=== PATIENT | male | born 1955 | race Caucasian/White ===

== ENCOUNTER → 2016-05-24 | Outpatient (CLI) | payer BC, OTHER ==
[~2016-05-24] MED LIST: /GLYB5TA PO; /PANT40TA; /TAMS4CA; /WARF5TA PO; BENI20TA11; CELE20TA; CIPR500T19; CIPR500T4; COLA100C2; COLA100C2 PO; CORE6.25 PO; DIGO0.126 PO; FLAG500T; FURO40TA2; GLUC1000; HYDR25TA6; K-TA10TA; LISI10TA4 PO; MILKSUS; MOTRIN; NORV5TAB; No Historical Meds; POTA10CA2; ROSU10TA; SLOWTAB OR; SPIR25TA2 PO; SYSTANE; TYLE500T53; VERA180T9; VERAPAMIL
[2016-05-24 19:09] LABS: ALBUMIN 3.7 GM/DL (3.2-5.2); ALBUMIN/GLOBULIN RATIO 1.19 (1.00-1.93); BILIRUBIN,TOTAL 0.3 MG/DL (0.2-1.0); CALCIUM LEVEL 8.8 MG/DL (8.8-10.2); CREATININE FOR GFR 1.59 MG/DL (0.70-1.30); GLOMERULAR FILTRATION RATE 47.2 (>49); POTASSIUM SERUM 4.4 MEQ/L (3.5-5.1); TOTAL PROTEIN 6.8 GM/DL (6.4-8.2)
== END ==
LOC: M LAB 16:55
PROVIDERS: ATTEND Family Medicine Addiction Medicine
DX: E11.65 Type 2 diabetes mellitus with hyperglycemia (principal)

== ENCOUNTER → 2016-08-28 | Outpatient (CLI) | payer BC, OTHER ==
[2016-08-28 09:36] LABS: ALBUMIN 3.7 GM/DL (3.2-5.2); ALBUMIN/GLOBULIN RATIO 1.12 (1.00-1.93); BILIRUBIN,TOTAL 0.5 MG/DL (0.2-1.0); CREATININE FOR GFR 1.57 MG/DL (0.70-1.30); GLOMERULAR FILTRATION RATE 47.7 (>49); POTASSIUM SERUM 4.8 MEQ/L (3.5-5.1)
== END ==
LOC: M LAB 07:58
PROVIDERS: ATTEND Family Medicine Addiction Medicine
DX: M54.16 Radiculopathy, lumbar region (principal)

== ENCOUNTER → 2016-11-20 | Outpatient (CLI) | payer BC, OTHER ==
[2016-11-20 11:22] LABS: ALBUMIN 3.6 GM/DL (3.2-5.2); ALBUMIN/GLOBULIN RATIO 0.97 (1.00-1.93); BILIRUBIN,TOTAL 0.6 MG/DL (0.2-1.0); CALCIUM LEVEL 8.6 MG/DL (8.8-10.2); CREATININE FOR GFR 1.68 MG/DL (0.70-1.30); GLOMERULAR FILTRATION RATE 44.2 (>49); POTASSIUM SERUM 4.5 MEQ/L (3.5-5.1); TOTAL PROTEIN 7.3 GM/DL (6.4-8.2)
== END ==
LOC: M LAB 09:01
PROVIDERS: ATTEND Family Medicine Addiction Medicine
DX: E11.65 Type 2 diabetes mellitus with hyperglycemia (principal)

== ENCOUNTER → 2017-02-20 | Outpatient (REF) | payer OTHER ==
[2017-02-20 14:07] LABS: ALBUMIN 3.8 GM/DL (3.2-5.2); ALBUMIN/GLOBULIN RATIO 1.09 (1.00-1.93); BILIRUBIN,TOTAL 0.6 MG/DL (0.2-1.0); CREATININE FOR GFR 1.62 MG/DL (0.70-1.30); POTASSIUM SERUM 4.7 MEQ/L (3.5-5.1); TOTAL PROTEIN 7.3 GM/DL (6.4-8.2)
== END ==
LOC: M LAB REF 12:31
PROVIDERS: ATTEND Family Medicine Addiction Medicine
DX: E55.9 Vitamin D deficiency, unspecified (principal); E11.65 Type 2 diabetes mellitus with hyperglycemia

== ENCOUNTER → 2017-02-20 | Outpatient (REF) | payer OTHER ==
[2017-02-20 13:43] LABS: MEAN CORPUSCULAR HEMOGLOBIN 32.1 pg (27.0-33.0); MEAN CORPUSCULAR HGB CONC 34.9 g/dl (32.0-36.5); MEAN CORPUSCULAR VOLUME 91.9 fl (80.0-96.0); RED CELL DISTRIBUTION WIDTH 11.8 % (11.5-14.5); WHITE BLOOD COUNT 8.1 10^3/uL (4.0-10.0)
[2017-02-20 13:58] LABS: ALBUMIN 3.8 GM/DL (3.2-5.2); CALCIUM LEVEL 9.1 MG/DL (8.8-10.2); CREATININE FOR GFR 1.69 MG/DL (0.70-1.30); GLOMERULAR FILTRATION RATE 43.8 (>49); MAGNESIUM LEVEL 2.1 MG/DL (1.8-2.4); PHOSPHORUS LEVEL 3.9 MG/DL (2.5-4.9); POTASSIUM SERUM 4.7 MEQ/L (3.5-5.1)
== END ==
LOC: M LAB REF 12:33
PROVIDERS: ATTEND Physician Assistant
DX: I48.0 Paroxysmal atrial fibrillation (principal); I50.42 Chronic combined systolic (congestive) and diastolic (congestive) heart failure

== ENCOUNTER 2017-04-03 09:28 | Emergency (ER) | payer BC, OTHER ==
[~2017-04-03] VITALS: Ht 182.9 cm; Wt 113.6 kg
[2017-04-03] MEDS ORDERED: CLOP75TA2 PO (09:44)
[2017-04-03] MEDS ORDERED: INSUH10VL SC (09:44)
[2017-04-03] MEDS ORDERED: MULTCAP12 PO (09:44)
[2017-04-03] MEDS ORDERED: INSULANT SC (09:44)
[2017-04-03] MEDS ORDERED: ATOR80TA59 PO (09:44)
[2017-04-03] MEDS ORDERED: FURO40TA2 PO (09:44)
[2017-04-03] MEDS ORDERED: HYDR-3713 PO (09:44)
[2017-04-03] MEDS ORDERED: ELIQ5TAB PO (09:44)
[2017-04-03] MEDS ORDERED: JARD1TAB3 PO (09:44)
[2017-04-03] MEDS ORDERED: VITA1CAP40 PO (09:44)
[2017-04-03] MEDS ORDERED: PERCOCET 5MG/325MG TAB PO ONE (11:00)
--- NOTE | 2017-04-03 11:31 | REP ---
Clinical: Trauma. Technique: Frontal view of the pelvis with neutral and frog lateral views of the left hip. Findings: No acute fracture dislocation. Bilateral hips appear symmetric on pelvic radiograph. Mild age-related degenerative changes noted including increased sclerosis to the acetabular roof and mild joint space narrowing. Impression: Mild degenerative changes to the pelvis and hips. No acute fracture dislocation. Signed by Marcelo Larose MD 04/03/2017 11:23 A
[2017-04-03 11:35] VITALS: BP 121/83
--- NOTE | 2017-04-03 11:36 | REP ---
LUMBOSACRAL SPINE: Five views of the lumbosacral spine performed. There is no compression fracture or malalignment. There is some straightening of the normal lumbar lordosis. There is mild diffuse spurring. There is moderate disc space narrowing at L3-4 and L5-S1 with subchondral sclerosis. There is mild narrowing at L4-5. There is sclerosis and spurring at the posterior facet joints at these levels. The posterior elements are intact. There is mild curvature towards the left. There is sclerosis at the sacroiliac joints bilaterally. IMPRESSION: Degenerative changes. No fracture or dislocation. Signed by Pan Vences MD 04/03/2017 04:57 P
== END 2017-04-03 11:49 | disposition home or self-care (01) ==
LOC: M ED 09:28
DX: S30.0XXA Contusion of lower back and pelvis, initial encounter (principal); S70.02XA Contusion of left hip, initial encounter; W13.3XXA Fall through floor, initial encounter; Y92.099 Unspecified place in other non-institutional residence as the place of occurrence of the external cause; Y93.9 Activity, unspecified; Y99.9 Unspecified external cause status; M46.06 Spinal enthesopathy, lumbar region; M46.07 Spinal enthesopathy, lumbosacral region; M51.36 Other intervertebral disc degeneration, lumbar region; M51.37 Other intervertebral disc degeneration, lumbosacral region; I50.9 Heart failure, unspecified; I10 Essential (primary) hypertension; N40.0 Benign prostatic hyperplasia without lower urinary tract symptoms; E11.9 Type 2 diabetes mellitus without complications; Z79.899 Other long term (current) drug therapy; Z79.4 Long term (current) use of insulin; Z88.6 Allergy status to analgesic agent; Z88.1 Allergy status to other antibiotic agents; Z88.0 Allergy status to penicillin; Z91.018 Allergy to other foods

== ENCOUNTER → 2017-05-24 | Outpatient (REF) | payer OTHER ==
[2017-05-24 16:01] LABS: ALBUMIN 3.8 GM/DL (3.2-5.2); ALBUMIN/GLOBULIN RATIO 1.15 (1.00-1.93); ALKALINE PHOSPHATASE 55 U/L (45-117); ALT/SGPT 49 U/L (12-78); ANION GAP 10 MEQ/L (8-16); AST/SGOT 32 U/L (7-37); BILIRUBIN,TOTAL 0.7 MG/DL (0.2-1.0); BLOOD UREA NITROGEN 40 MG/DL (7-18); CALCIUM LEVEL 8.6 MG/DL (8.8-10.2); CARBON DIOXIDE LEVEL 23 MEQ/L (21-32); CHLORIDE LEVEL 106 MEQ/L (98-107); CHOLESTEROL LEVEL 118 MG/DL (<200); CHOLESTEROL RISK RATIO 4.068 (<5); CREATININE FOR GFR 1.66 MG/DL (0.70-1.30); GLOMERULAR FILTRATION RATE 44.8 (>49); GLUCOSE, FASTING 163 MG/DL (80-110); HDL CHOLESTEROL 29 MG/DL (>40); LDL CHOLESTEROL 39.4 MG/DL (<100); NON-HDL-C 89 MG/DL; POTASSIUM SERUM 4.6 MEQ/L (3.5-5.1); SODIUM LEVEL 139 MEQ/L (136-145); TOTAL PROTEIN 7.1 GM/DL (6.4-8.2); TRIGLYCERIDES LEVEL 248 MG/DL (<150)
[2017-05-24 16:25] LABS: ESTIMATED AVERAGE GLUCOSE 240 MG/DL (60-110)
== END ==
LOC: M LAB REF 15:21
DX: E11.65 Type 2 diabetes mellitus with hyperglycemia (principal)

== ENCOUNTER → 2017-08-23 | Outpatient (REF) | payer OTHER ==
[2017-08-23 18:41] LABS: ALBUMIN 3.9 GM/DL (3.2-5.2); ALBUMIN/GLOBULIN RATIO 1.15 (1.00-1.93); ALKALINE PHOSPHATASE 60 U/L (45-117); ALT/SGPT 49 U/L (12-78); ANION GAP 7 MEQ/L (8-16); AST/SGOT 36 U/L (7-37); BILIRUBIN,TOTAL 0.6 MG/DL (0.2-1.0); BLOOD UREA NITROGEN 25 MG/DL (7-18); CALCIUM LEVEL 8.8 MG/DL (8.8-10.2); CARBON DIOXIDE LEVEL 25 MEQ/L (21-32); CHLORIDE LEVEL 106 MEQ/L (98-107); CHOLESTEROL LEVEL 127 MG/DL (<200); CHOLESTEROL RISK RATIO 4.884 (<5); CREATININE FOR GFR 1.48 MG/DL (0.70-1.30); GLOMERULAR FILTRATION RATE 50.9 (>49); GLUCOSE, FASTING 85 MG/DL (70-100); HDL CHOLESTEROL 26 MG/DL (>40); NON-HDL-C 101 MG/DL; POTASSIUM SERUM 4.3 MEQ/L (3.5-5.1); SODIUM LEVEL 138 MEQ/L (136-145); TOTAL PROTEIN 7.3 GM/DL (6.4-8.2); TRIGLYCERIDES LEVEL 245 MG/DL (<150)
[2017-08-23 18:42] LABS: ESTIMATED AVERAGE GLUCOSE 212 MG/DL (60-110)
[2017-08-23 18:48] LABS: CREATININE, URINE 62.7 MG/DL; MALB URINE SIEMENS 9.6 MG/L; MAU/CREAT RATIO 15.3 MCG/MG (0.0-30.0)
== END ==
LOC: M LAB REF 16:56
DX: E11.65 Type 2 diabetes mellitus with hyperglycemia (principal)

== ENCOUNTER → 2017-12-17 | Outpatient (REF) | payer OTHER ==
[2017-12-17 13:54] LABS: ALBUMIN 3.8 GM/DL (3.2-5.2); ALBUMIN/GLOBULIN RATIO 1.19 (1.00-1.93); ALKALINE PHOSPHATASE 58 U/L (45-117); ALT/SGPT 43 U/L (12-78); ANION GAP 8 MEQ/L (8-16); AST/SGOT 35 U/L (7-37); BILIRUBIN,TOTAL 0.8 MG/DL (0.2-1.0); BLOOD UREA NITROGEN 28 MG/DL (7-18); CALCIUM LEVEL 8.7 MG/DL (8.8-10.2); CARBON DIOXIDE LEVEL 25 MEQ/L (21-32); CHLORIDE LEVEL 106 MEQ/L (98-107); CHOLESTEROL LEVEL 131 MG/DL (<200); CHOLESTEROL RISK RATIO 4.366 (<5); CREATININE FOR GFR 1.76 MG/DL (0.70-1.30); GLOMERULAR FILTRATION RATE 41.7 (>49); GLUCOSE, FASTING 121 MG/DL (70-100); HDL CHOLESTEROL 30 MG/DL (>40); LDL CHOLESTEROL 68.4 MG/DL (<100); NON-HDL-C 101 MG/DL; POTASSIUM SERUM 4.7 MEQ/L (3.5-5.1); SODIUM LEVEL 139 MEQ/L (136-145); TRIGLYCERIDES LEVEL 163 MG/DL (<150)
[2017-12-17 14:33] LABS: ESTIMATED AVERAGE GLUCOSE 217 MG/DL (60-110); HEMOGLOBIN A1c 9.2 %
== END ==
LOC: M LAB REF 12:52
DX: E11.65 Type 2 diabetes mellitus with hyperglycemia (principal)

== ENCOUNTER → 2018-03-15 | Outpatient (REF) | payer OTHER ==
[2018-03-15 12:55] LABS: HEMATOCRIT 48.4 % (42.0-52.0); HEMOGLOBIN 16.6 g/dl (13.5-17.5); MEAN CORPUSCULAR HEMOGLOBIN 31.9 pg (27.0-33.0); MEAN CORPUSCULAR HGB CONC 34.3 g/dl (32.0-36.5); MEAN CORPUSCULAR VOLUME 93.1 fl (80.0-96.0); PLATELET COUNT, AUTOMATED 268 10^3/uL (150-450); RED CELL DISTRIBUTION WIDTH 12.3 % (11.5-14.5); WHITE BLOOD COUNT 9.7 10^3/uL (4.0-10.0)
== END ==
LOC: M LAB REF 12:23
DX: I48.0 Paroxysmal atrial fibrillation (principal)

== ENCOUNTER → 2018-03-15 | Outpatient (REF) | payer OTHER ==
[2018-03-15 13:47] LABS: ALBUMIN 3.9 GM/DL (3.2-5.2); ALBUMIN/GLOBULIN RATIO 1.15 (1.00-1.93); ALKALINE PHOSPHATASE 59 U/L (45-117); ALT/SGPT 45 U/L (12-78); ANION GAP 11 MEQ/L (8-16); AST/SGOT 29 U/L (7-37); BILIRUBIN,TOTAL 0.9 MG/DL (0.2-1.0); BLOOD UREA NITROGEN 29 MG/DL (7-18); CALCIUM LEVEL 8.7 MG/DL (8.8-10.2); CARBON DIOXIDE LEVEL 25 MEQ/L (21-32); CHLORIDE LEVEL 102 MEQ/L (98-107); CHOLESTEROL LEVEL 113 MG/DL (<200); CHOLESTEROL RISK RATIO 4.035 (<5); CREATININE FOR GFR 1.84 MG/DL (0.70-1.30); GLOMERULAR FILTRATION RATE 39.6 (>49); GLUCOSE, FASTING 172 MG/DL (70-100); HDL CHOLESTEROL 28 MG/DL (>40); LDL CHOLESTEROL 43 MG/DL (<100); NON-HDL-C 85 MG/DL; POTASSIUM SERUM 5.1 MEQ/L (3.5-5.1); SODIUM LEVEL 138 MEQ/L (136-145); TOTAL PROTEIN 7.3 GM/DL (6.4-8.2); TRIGLYCERIDES LEVEL 212 MG/DL (<150)
[2018-03-15 14:41] LABS: ESTIMATED AVERAGE GLUCOSE 180 MG/DL (60-110); HEMOGLOBIN A1c 7.9 %
== END ==
LOC: M LAB REF 12:22
DX: E11.65 Type 2 diabetes mellitus with hyperglycemia (principal)

== ENCOUNTER → 2018-06-17 | Outpatient (REF) | payer OTHER ==
[~2018-06-17] MED LIST changes: +ATOR80TA59 PO; +CLOP75TA2 PO; +ELIQ5TAB PO; +FURO40TA2 PO; +HYDR-3713 PO; +INSUH10VL SC; +INSULANT SC; +JARD1TAB3 PO; +MULTCAP12 PO; +VITA50005 PO
[2018-06-17 12:54] LABS: ALBUMIN 3.7 GM/DL (3.2-5.2); BILIRUBIN,TOTAL 0.5 MG/DL (0.2-1.0); CALCIUM LEVEL 8.7 MG/DL (8.8-10.2); CHOLESTEROL RISK RATIO 4.769 (<5); CREATININE FOR GFR 1.57 MG/DL (0.70-1.30); GLOMERULAR FILTRATION RATE 47.4 (>49); POTASSIUM SERUM 4.6 MEQ/L (3.5-5.1); THYROID STIMULATING HORMONE 1.34 uIU/ML (0.358-3.740); TOTAL PROTEIN 6.9 GM/DL (6.4-8.2)
[2018-06-17 13:26] LABS: HEMOGLOBIN A1c 10.7 %
== END ==
LOC: M LAB REF 11:55
PROVIDERS: ATTEND Family Medicine Addiction Medicine
DX: E11.65 Type 2 diabetes mellitus with hyperglycemia (principal)

== ENCOUNTER → 2018-11-15 | Outpatient (REF) | payer OTHER ==
[~2018-11-15] MED LIST changes: -/GLYB5TA PO; -/PANT40TA; -/TAMS4CA; -/WARF5TA PO; +COUM1TAB17 PO; +CRES10TA32; +FLOM0.4C39; +GLYB1TAB29 PO; +KEFL500C17 PO; +PROT1TAB2; -ROSU10TA
[2018-11-15 13:21] LABS: ALBUMIN 3.8 GM/DL (3.2-5.2); BILIRUBIN,TOTAL 0.8 MG/DL (0.2-1.0); CALCIUM LEVEL 8.9 MG/DL (8.8-10.2); CHOLESTEROL RISK RATIO 4.259 (<5); CREATININE FOR GFR 1.58 MG/DL (0.70-1.30); GLOMERULAR FILTRATION RATE 47.1 (>49); POTASSIUM SERUM 4.7 MEQ/L (3.5-5.1); THYROID STIMULATING HORMONE 1.32 uIU/ML (0.358-3.740); TOTAL PROTEIN 6.9 GM/DL (6.4-8.2)
[2018-11-15 14:53] LABS: HEMOGLOBIN A1c 9.6 %
== END ==
LOC: M LAB REF 12:31
PROVIDERS: ATTEND Family Medicine Addiction Medicine
DX: E11.65 Type 2 diabetes mellitus with hyperglycemia (principal)

== ENCOUNTER 2018-11-24 21:30 | Emergency (ER) | payer BC, OTHER ==
[~2018-11-24] VITALS: Ht 182.9 cm; Wt 111.4 kg
[~2018-11-24 21:30] MED LIST changes: -KEFL500C17 PO
[2018-11-25] MEDS ORDERED: BACTRIM 160MG/800MG DS TAB PO ONE (00:30)
[2018-11-25 00:32] VITALS: BP 154/88
[2018-11-25] MEDS ORDERED: KEFL500C17 PO (00:32)
[2018-11-25] MEDS: CEPHALEXIN 500 MG CAP PO ONE (00:40)
--- NOTE | 2018-11-25 08:44 | REP ---
Left foot four views : There is no fracture or dislocation. Mineralization and joint spaces are normal. There are no calcifications or foreign bodies. Impression: Negative left foot . Electronically Signed by Pan Aparicio MD 11/25/2018 08:36 A
== END 2018-11-25 00:45 | disposition home or self-care (01) ==
LOC: M ED 21:30
DX: L03.116 Cellulitis of left lower limb (principal); E11.9 Type 2 diabetes mellitus without complications; I48.91 Unspecified atrial fibrillation; I11.0 Hypertensive heart disease with heart failure; I50.9 Heart failure, unspecified; E78.5 Hyperlipidemia, unspecified; N40.0 Benign prostatic hyperplasia without lower urinary tract symptoms; M54.9 Dorsalgia, unspecified; Z95.5 Presence of coronary angioplasty implant and graft; Z88.0 Allergy status to penicillin; Z88.6 Allergy status to analgesic agent; Z88.1 Allergy status to other antibiotic agents; Z91.018 Allergy to other foods; Z79.899 Other long term (current) drug therapy; Z79.01 Long term (current) use of anticoagulants; Z79.02 Long term (current) use of antithrombotics/antiplatelets; Z79.4 Long term (current) use of insulin

== ENCOUNTER → 2019-10-21 | Outpatient (REF) | payer OTHER, MEDICARE ==
[~2019-10-21] MED LIST changes: +KEFL500C17 PO
[2019-10-21 18:29] LABS: HEMOGLOBIN A1c 8.7 %
[2019-10-21 18:43] LABS: ALBUMIN 3.9 GM/DL (3.2-5.2); BILIRUBIN,TOTAL 0.7 MG/DL (0.2-1.0); CALCIUM LEVEL 8.8 MG/DL (8.8-10.2); CHOLESTEROL RISK RATIO 4.88 (<5); CREATININE FOR GFR 1.77 MG/DL (0.70-1.30); GLOMERULAR FILTRATION RATE 41.2 (>49); THYROID STIMULATING HORMONE 1.52 uIU/ML (0.358-3.740); TOTAL PROTEIN 7.4 GM/DL (6.4-8.2)
== END ==
LOC: M LAB REF 16:18
PROVIDERS: ATTEND Family Medicine Addiction Medicine
DX: E11.65 Type 2 diabetes mellitus with hyperglycemia (principal)

== ENCOUNTER → 2020-09-23 | Outpatient (CLI) | payer BC, OTHER, MEDICARE ==
[2020-09-23 08:09] LABS: BASO # 0.1 10^3/uL (0.0-0.2); EOS # 0.2 10^3/uL (0.0-0.5); EOS % 3.1 % (0.0-3.0); HEMATOCRIT 45.7 % (42.0-52.0); HEMOGLOBIN 15.5 g/dl (13.5-17.5); LYMPH # 1.7 10^3/uL (1.5-5.0); LYMPH % 22.4 % (24.0-44.0); MEAN CORPUSCULAR HEMOGLOBIN 32.7 pg (27.0-33.0); MEAN CORPUSCULAR HGB CONC 33.9 g/dl (32.0-36.5); MEAN CORPUSCULAR VOLUME 96.4 fl (80.0-96.0); MONO # 0.9 10^3/uL (0.0-0.8); MONO % 11.8 % (2.0-8.0); NEUTROPHILS # 4.7 10^3/uL (1.5-8.5); NEUTROPHILS % 61.2 % (36.0-66.0); PLATELET COUNT, AUTOMATED 238 10^3/uL (150-450); RED BLOOD COUNT 4.74 10^6/uL (4.30-6.10); WHITE BLOOD COUNT 7.7 10^3/uL (4.0-10.0)
[2020-09-23 08:41] LABS: ALBUMIN 3.8 GM/DL (3.2-5.2); BILIRUBIN,TOTAL 0.6 MG/DL (0.2-1.0); CALCIUM LEVEL 9.1 MG/DL (8.8-10.2); CHOLESTEROL RISK RATIO 3.965 (<5); CREATININE FOR GFR 1.71 MG/DL (0.70-1.30); GLOMERULAR FILTRATION RATE 42.7 (>49); POTASSIUM SERUM 5.2 MEQ/L (3.5-5.1); TOTAL PROTEIN 7.2 GM/DL (6.4-8.2)
[2020-09-23 08:51] LABS: CREATININE, URINE 98.4 MG/DL; MAU/CREAT RATIO 23.3 MCG/MG (0.0-30.0)
== END ==
LOC: M LAB 07:16
PROVIDERS: ATTEND Internal Medicine Endocrinology, Diabetes & Metabolism
DX: E11.22 Type 2 diabetes mellitus with diabetic chronic kidney disease (principal)

== ENCOUNTER → 2021-01-20 | Outpatient (REF) | payer BC, OTHER, MEDICARE | LOC: M LAB REF 16:56 | PROVIDERS: ATTEND Internal Medicine Nephrology | DX: E83.42 Hypomagnesemia (principal) ==

== ENCOUNTER → 2021-09-27 | Outpatient (CLI) | payer MEDICARE ==
[2021-09-27 08:31] LABS: HEMATOCRIT 41.8 % (42.0-52.0); HEMOGLOBIN 14.5 g/dl (13.5-17.5); MEAN CORPUSCULAR HEMOGLOBIN 32.7 pg (27.0-33.0); MEAN CORPUSCULAR HGB CONC 34.7 g/dl (32.0-36.5); MEAN CORPUSCULAR VOLUME 94.1 fl (80.0-96.0); PLATELET COUNT, AUTOMATED 236 10^3/uL (150-450); RED BLOOD COUNT 4.44 10^6/uL (4.30-6.10); WHITE BLOOD COUNT 7.2 10^3/uL (4.0-10.0)
[2021-09-27 09:11] LABS: ALBUMIN 3.4 GM/DL (3.2-5.2); BILIRUBIN,TOTAL 0.7 MG/DL (0.2-1.0); CALCIUM LEVEL 9.3 MG/DL (8.8-10.2); CHOLESTEROL RISK RATIO 4.964 (<5); CREATININE FOR GFR 1.41 MG/DL (0.70-1.30); GLOMERULAR FILTRATION RATE 53.2 (>49); MAGNESIUM LEVEL 2.1 MG/DL (1.8-2.4); POTASSIUM SERUM 4.5 MEQ/L (3.5-5.1)
== END ==
LOC: M LAB 07:09
PROVIDERS: ATTEND Physician Assistant
DX: I50.42 Chronic combined systolic (congestive) and diastolic (congestive) heart failure (principal); I25.10 Atherosclerotic heart disease of native coronary artery without angina pectoris; I48.0 Paroxysmal atrial fibrillation; E78.00 Pure hypercholesterolemia, unspecified

== ENCOUNTER 2021-10-31 20:16 | Emergency (ER) | payer MEDICARE ==
[~2021-10-31] VITALS: Ht 182.9 cm; Wt 116.4 kg
[2021-10-31 20:17] VITALS: BP 166/89
== END 2021-10-31 21:00 | disposition left against medical advice (07) ==
LOC: M ED 20:16
DX: Z53.21 Procedure and treatment not carried out due to patient leaving prior to being seen by health care provider (principal)

== ENCOUNTER → 2022-04-10 | Outpatient (CLI) | payer MEDICARE ==
[2022-04-10 13:57] LABS: INR 1.83; PROTHROMBIN TIME 21.5 SECONDS (12.5-14.5)
== END ==
LOC: M LAB 12:51
PROVIDERS: ATTEND Physician Assistant
DX: I50.42 Chronic combined systolic (congestive) and diastolic (congestive) heart failure (principal); I48.0 Paroxysmal atrial fibrillation

== ENCOUNTER → 2022-05-29 | Outpatient (CLI) | payer OTHER ==
[2022-05-29 13:27] LABS: INR 4.32
== END ==
LOC: M LAB 12:41
PROVIDERS: ATTEND Physician Assistant
DX: I48.0 Paroxysmal atrial fibrillation (principal); Z79.01 Long term (current) use of anticoagulants

== ENCOUNTER → 2022-06-14 | Outpatient (CLI) | payer OTHER ==
[2022-06-14 14:24] LABS: INR 3.34; PROTHROMBIN TIME 34.4 SECONDS (12.5-14.5)
== END ==
LOC: M LAB 13:04
PROVIDERS: ATTEND Physician Assistant
DX: I48.0 Paroxysmal atrial fibrillation (principal); Z79.01 Long term (current) use of anticoagulants

== ENCOUNTER → 2022-07-04 | Outpatient (CLI) | payer OTHER ==
[2022-07-04 16:36] LABS: INR 2.09; PROTHROMBIN TIME 23.8 SECONDS (12.5-14.5)
== END ==
LOC: M LAB 15:00
PROVIDERS: ATTEND Physician Assistant
DX: I48.0 Paroxysmal atrial fibrillation (principal); Z79.01 Long term (current) use of anticoagulants

== ENCOUNTER → 2022-08-02 | Outpatient (CLI) | payer OTHER ==
[2022-08-02 15:48] LABS: INR 2.28; PROTHROMBIN TIME 25.5 SECONDS (12.5-14.5)
== END ==
LOC: M LAB 14:45
PROVIDERS: ATTEND Physician Assistant
DX: I48.0 Paroxysmal atrial fibrillation (principal); Z79.01 Long term (current) use of anticoagulants

== ENCOUNTER → 2022-08-31 | Outpatient (CLI) | payer OTHER ==
[2022-08-31 16:29] LABS: INR 2.64; PROTHROMBIN TIME 28.6 SECONDS (12.5-14.5)
== END ==
LOC: M LAB 14:45
PROVIDERS: ATTEND Physician Assistant
DX: I48.0 Paroxysmal atrial fibrillation (principal); Z79.01 Long term (current) use of anticoagulants

== ENCOUNTER 2022-09-13 06:25 | Day surgery (SDC) | payer OTHER ==
[~2022-09-13] VITALS: Ht 182.9 cm; Wt 116.1 kg
[~2022-09-13 06:25] MED LIST changes: +BSS IRRIG/VANCO(10MG)/TOBRA(5MG)/EPINEPH(1:1000-0.5CC)500ML BAG-ORONLY IR ONE; +CARV6.25 PO; +DIGO0.123 PO; +ERGO500029 PO; +INSURSD SQ; +INSURSDRX SC; +LIDOCAINE 3.5 % 1ML OPHTH TOPICAL GEL OU ONE; +LISI20TA33 PO; +MAGN64TASA PO; +OFLOXACIN 0.3 % (OCUFLOX) OPTH SOL 5ML OD ONE; +PHENYLEPHRINE 10% OPHTH SOL 5ML OD PRN; +SPIR-10 PO; +TIRZ5PEN SQ; +TORS20TA2 PO; +TOUJ300I2 SQ; +WARF-18 PO
[2022-09-13] MEDS ORDERED: LIDOCAINE 1% SDV 5ML VIAL As Ordered ONE (06:39)
[2022-09-13] MEDS ORDERED: INSULIN LISPRO (NovoLOG) PER UNIT SC PRN (06:55)
[2022-09-13] MEDS: PHENYLEPHRINE 2.5% OPHTH SOL 2ML OD SCH ×3 (07:01→07:19)
[2022-09-13] MEDS: TROPICAMIDE 1% OPHTH SOLN 15ML OD SCH ×3 (07:02→07:19)
[2022-09-13] MEDS: CYCLOPENTOLATE 1% OPHTH SOLN 2ML BTL OD SCH ×3 (07:02→07:19)
[2022-09-13] MEDS ORDERED: MIDAZOLAM INJ 2MG/2ML VIAL As Ordered ONE (07:17)
[2022-09-13] MEDS ORDERED: fentaNYL 100 MCG/2 ML INJECTION As Ordered ONE (07:17)
[2022-09-13 08:11] VITALS: BP 157/84
== END 2022-09-13 08:33 | disposition home or self-care (01) ==
LOC: M SDC 06:25
PROVIDERS: ATTEND Ophthalmology
DX: H25.11 Age-related nuclear cataract, right eye (principal); I12.9 Hypertensive chronic kidney disease with stage 1 through stage 4 chronic kidney disease, or unspecified chronic kidney disease; N18.30 Chronic kidney disease, stage 3 unspecified; I25.2 Old myocardial infarction; Z98.61 Coronary angioplasty status; E11.9 Type 2 diabetes mellitus without complications; E78.5 Hyperlipidemia, unspecified; N40.0 Benign prostatic hyperplasia without lower urinary tract symptoms; F32.A Depression, unspecified; Z79.4 Long term (current) use of insulin; Z79.899 Other long term (current) drug therapy; Z79.01 Long term (current) use of anticoagulants; Z88.0 Allergy status to penicillin; Z88.8 Allergy status to other drugs, medicaments and biological substances; Z88.1 Allergy status to other antibiotic agents; Z91.018 Allergy to other foods
CPT/HCPCS: 66984; J2250; J3010; V2632

== ENCOUNTER → 2022-09-28 | Outpatient (CLI) | payer OTHER ==
[~2022-09-28] MED LIST changes: -BSS IRRIG/VANCO(10MG)/TOBRA(5MG)/EPINEPH(1:1000-0.5CC)500ML BAG-ORONLY IR ONE; -LIDOCAINE 3.5 % 1ML OPHTH TOPICAL GEL OU ONE; -OFLOXACIN 0.3 % (OCUFLOX) OPTH SOL 5ML OD ONE; -PHENYLEPHRINE 10% OPHTH SOL 5ML OD PRN
[2022-09-28 16:35] LABS: INR 2.78; PROTHROMBIN TIME 29.8 SECONDS (12.5-14.5)
== END ==
LOC: M LAB 15:30
PROVIDERS: ATTEND Physician Assistant
DX: I48.0 Paroxysmal atrial fibrillation (principal); Z79.01 Long term (current) use of anticoagulants

== ENCOUNTER → 2022-10-31 | Outpatient (CLI) | payer OTHER ==
[2022-10-31 13:27] LABS: INR 2.26; PROTHROMBIN TIME 25.3 SECONDS (12.5-14.5)
== END ==
LOC: M LAB 12:26
PROVIDERS: ATTEND Physician Assistant
DX: I48.0 Paroxysmal atrial fibrillation (principal); Z79.01 Long term (current) use of anticoagulants

== ENCOUNTER → 2022-11-28 | Outpatient (CLI) | payer OTHER | LOC: M RAD 14:22 | PROVIDERS: ATTEND Nurse Practitioner Family | DX: N17.9 Acute kidney failure, unspecified (principal) ==

== ENCOUNTER → 2022-12-06 | Outpatient (CLI) | payer OTHER ==
[2022-12-06 15:16] LABS: INR 2.52; PROTHROMBIN TIME 27.6 SECONDS (12.5-14.5)
== END ==
LOC: M LAB 14:01
PROVIDERS: ATTEND Physician Assistant
DX: I48.0 Paroxysmal atrial fibrillation (principal)

== ENCOUNTER → 2022-12-25 | Outpatient (CLI) | payer OTHER | LOC: M RAD 14:50 | PROVIDERS: ATTEND Nurse Practitioner Family | DX: M79.89 Other specified soft tissue disorders (principal); M19.072 Primary osteoarthritis, left ankle and foot ==

== ENCOUNTER → 2023-01-09 | Outpatient (CLI) | payer OTHER ==
[2023-01-09 15:40] LABS: INR 2.25; PROTHROMBIN TIME 24.3 SECONDS (12.5-14.5)
== END ==
LOC: M LAB 13:27
PROVIDERS: ATTEND Physician Assistant
DX: Z79.01 Long term (current) use of anticoagulants (principal); I48.0 Paroxysmal atrial fibrillation

== ENCOUNTER 2023-02-28 11:01 | Day surgery (SDC) | payer OTHER ==
[~2023-02-28] VITALS: Ht 182.9 cm; Wt 122.3 kg
[~2023-02-28 11:01] MED LIST changes: +ACETYLCHOLINE OPHTH SOLN 1% 2ML (MIOCHOL-E) As Ordered ONE; +BSS IRRIG/VANCO(10MG)/TOBRA(5MG)/EPINEPH(1:1000-0.5CC)500ML BAG-ORONLY IR ONE; +CYCLOPENTOLATE 1% OPHTH SOLN 2ML BTL OS SCH; +INSULIN LISPRO (NovoLOG) PER UNIT SC PRN; +LIDOCAINE 1% SDV 5ML VIAL As Ordered ONE; +LIDOCAINE 1% SDV 5ML VIAL SC PRN; +LIDOCAINE 3.5 % 1ML OPHTH TOPICAL GEL OU ONE; +MIDAZOLAM INJ 2MG/2ML VIAL As Ordered ONE; +OFLOXACIN 0.3 % (OCUFLOX) OPTH SOL 5ML OS ONE; +PHENYLEPHRINE 10% OPHTH SOL 5ML OS PRN; +PHENYLEPHRINE 2.5% OPHTH SOL 2ML OS SCH; +TROPICAMIDE 1% OPHTH SOLN 15ML OS SCH; +fentaNYL 100 MCG/2 ML INJECTION As Ordered ONE
[2023-02-28] MEDS ORDERED: INSULIN LISPRO (NovoLOG) PER UNIT SC PRN (11:45)
[2023-02-28 12:44] VITALS: BP 169/88; TEMP 97.7; O2SAT 95
== END 2023-02-28 13:11 | disposition home or self-care (01) ==
LOC: M SDC 11:01
PROVIDERS: ATTEND Ophthalmology
DX: E11.36 Type 2 diabetes mellitus with diabetic cataract (principal); H26.9 Unspecified cataract; I48.91 Unspecified atrial fibrillation; I10 Essential (primary) hypertension; I25.2 Old myocardial infarction; E78.00 Pure hypercholesterolemia, unspecified; G47.30 Sleep apnea, unspecified; Z95.5 Presence of coronary angioplasty implant and graft; Z79.4 Long term (current) use of insulin; Z79.899 Other long term (current) drug therapy; Z79.01 Long term (current) use of anticoagulants; Z88.0 Allergy status to penicillin; Z88.1 Allergy status to other antibiotic agents; Z88.6 Allergy status to analgesic agent
CPT/HCPCS: 66984; J1815; J2250; J3010; V2632

== ENCOUNTER → 2023-02-28 | Outpatient (CLI) | payer OTHER ==
[~2023-02-28] MED LIST changes: +AMLO1TAB24 PO
[2023-02-28 14:11] LABS: INR 2.22
== END ==
LOC: M LAB 13:24
PROVIDERS: ATTEND Physician Assistant
DX: Z79.01 Long term (current) use of anticoagulants (principal); I48.0 Paroxysmal atrial fibrillation

== ENCOUNTER → 2023-03-28 | Outpatient (CLI) | payer OTHER ==
[~2023-03-28] MED LIST changes: -ACETYLCHOLINE OPHTH SOLN 1% 2ML (MIOCHOL-E) As Ordered ONE; -BSS IRRIG/VANCO(10MG)/TOBRA(5MG)/EPINEPH(1:1000-0.5CC)500ML BAG-ORONLY IR ONE; -CYCLOPENTOLATE 1% OPHTH SOLN 2ML BTL OS SCH; -INSULIN LISPRO (NovoLOG) PER UNIT SC PRN; -LIDOCAINE 1% SDV 5ML VIAL As Ordered ONE; -LIDOCAINE 1% SDV 5ML VIAL SC PRN; -LIDOCAINE 3.5 % 1ML OPHTH TOPICAL GEL OU ONE; -MIDAZOLAM INJ 2MG/2ML VIAL As Ordered ONE; -OFLOXACIN 0.3 % (OCUFLOX) OPTH SOL 5ML OS ONE; -PHENYLEPHRINE 10% OPHTH SOL 5ML OS PRN; -PHENYLEPHRINE 2.5% OPHTH SOL 2ML OS SCH; -TROPICAMIDE 1% OPHTH SOLN 15ML OS SCH; -fentaNYL 100 MCG/2 ML INJECTION As Ordered ONE
[2023-03-28 14:13] LABS: INR 2.09; PROTHROMBIN TIME 22.7 SECONDS (12.5-14.5)
== END ==
LOC: M LAB 12:58
PROVIDERS: ATTEND Physician Assistant
DX: I48.0 Paroxysmal atrial fibrillation (principal); Z79.01 Long term (current) use of anticoagulants

== ENCOUNTER → 2023-04-25 | Outpatient (CLI) | payer OTHER ==
[~2023-04-25] MED LIST changes: +INSU100V19 SQ; -INSURSD SQ
[2023-04-25 14:04] LABS: INR 2.45; PROTHROMBIN TIME 25.7 SECONDS (12.5-14.5)
== END ==
LOC: M LAB 13:08
PROVIDERS: ATTEND Physician Assistant
DX: I48.0 Paroxysmal atrial fibrillation (principal); Z79.01 Long term (current) use of anticoagulants

== ENCOUNTER → 2023-05-28 | Outpatient (CLI) | payer OTHER ==
[2023-05-28 09:00] LABS: ALBUMIN 3.4 G/DL (3.2-5.2); BILIRUBIN,DIRECT 0.1 MG/DL (<0.4); BILIRUBIN,TOTAL 0.5 MG/DL (0.3-1.2); CHOLESTEROL RISK RATIO 8.8 (<5); LDL CHOLESTEROL 115.4 MG/DL (<100); TOTAL PROTEIN 6.6 G/DL (5.7-8.2)
[2023-05-28 09:21] LABS: INR 1.93; PROTHROMBIN TIME 21.4 SECONDS (12.5-14.5)
== END ==
LOC: M LAB 07:10
PROVIDERS: ATTEND Physician Assistant
DX: I48.0 Paroxysmal atrial fibrillation (principal); Z79.01 Long term (current) use of anticoagulants; I25.10 Atherosclerotic heart disease of native coronary artery without angina pectoris; E78.00 Pure hypercholesterolemia, unspecified

== ENCOUNTER → 2023-07-06 | Outpatient (CLI) | payer OTHER ==
[2023-07-06 12:12] LABS: INR 2.17; PROTHROMBIN TIME 23.4 SECONDS (12.5-14.5)
== END ==
LOC: M LAB 11:36
PROVIDERS: ATTEND Physician Assistant
DX: I48.0 Paroxysmal atrial fibrillation (principal); Z79.01 Long term (current) use of anticoagulants

== ENCOUNTER 2023-07-16 14:36 | Emergency (ER) | payer OTHER ==
[2023-07-16 17:23] LABS: BASO # 0.1 10^3/uL (0.0-0.2); BASO % 0.5 % (0.0-1.0); EOS # 0.2 10^3/uL (0.0-0.5); EOS % 1.7 % (0.0-3.0); HEMATOCRIT 38.9 % (42.0-52.0); HEMOGLOBIN 13.6 g/dl (13.5-17.5); LYMPH # 2.2 10^3/uL (1.5-5.0); LYMPH % 18.3 % (24.0-44.0); MEAN CORPUSCULAR HEMOGLOBIN 32.1 pg (27.0-33.0); MEAN CORPUSCULAR VOLUME 91.7 fl (80.0-96.0); MONO # 1.3 10^3/uL (0.0-0.8); MONO % 10.5 % (2.0-8.0); NEUTROPHILS # 8.3 10^3/uL (1.5-8.5); NEUTROPHILS % 68.6 % (36.0-66.0); PLATELET COUNT, AUTOMATED 308 10^3/uL (150-450); RED BLOOD COUNT 4.24 10^6/uL (4.30-6.10); WHITE BLOOD COUNT 12.2 10^3/uL (4.0-10.0)
[2023-07-16 17:29] LABS: ERYTHROCYTE SEDIMENTATION RATE 57 mm/hr (0-20)
[2023-07-16 17:55] LABS: C REACTIVE PROTEIN QUANTITATIV 5.2 MG/DL (<1.0)
[2023-07-16 17:57] LABS: CALCIUM LEVEL 7.8 MG/DL (8.3-10.6); CREATININE FOR GFR 1.77 MG/DL (0.70-1.30); GLOMERULAR FILTRATION RATE 40.7 (>42); POTASSIUM SERUM 4.6 MMOL/L (3.5-5.1)
[2023-07-16] MEDS ORDERED: VANCOMYCIN HCL 1,000 MG in IV FLUID PLACE HOLDER 1 EA IV ONE (20:30)
[2023-07-16] MEDS ORDERED: CEPH500C PO (20:39)
[2023-07-16] MEDS: VANCOMYCIN HCL 1,000 MG, VIAL MATE ADAPTER 1 EACH in D5W 250 ML IV ONE (21:04)
[2023-07-16 22:25] VITALS: BP 165/93; TEMP 98; O2SAT 99
== END 2023-07-16 22:26 | disposition home or self-care (01) ==
LOC: M ED 14:36
DX: L03.032 Cellulitis of left toe (principal); S92.502B Displaced unspecified fracture of left lesser toe(s), initial encounter for open fracture; X58.XXXA Exposure to other specified factors, initial encounter; Y92.9 Unspecified place or not applicable; Y93.9 Activity, unspecified; Y99.9 Unspecified external cause status; I48.91 Unspecified atrial fibrillation; I50.9 Heart failure, unspecified; I25.2 Old myocardial infarction; E11.40 Type 2 diabetes mellitus with diabetic neuropathy, unspecified; N18.30 Chronic kidney disease, stage 3 unspecified; G47.33 Obstructive sleep apnea (adult) (pediatric); Z95.5 Presence of coronary angioplasty implant and graft; Z79.4 Long term (current) use of insulin; Z79.899 Other long term (current) drug therapy; Z88.0 Allergy status to penicillin; Z88.1 Allergy status to other antibiotic agents; Z88.8 Allergy status to other drugs, medicaments and biological substances; Z91.018 Allergy to other foods
CPT/HCPCS: 73660; 80048; 83605; 85025; 85652; 86140; 87040; 87070; 87077; 87186; 87205; 96365; 99283; J3370

== ENCOUNTER → 2023-08-16 | Outpatient (CLI) | payer OTHER ==
[~2023-08-16] MED LIST changes: +CEPH500C PO
[2023-08-16 11:25] LABS: INR 2.2; PROTHROMBIN TIME 23.7 SECONDS (12.5-14.5)
== END ==
LOC: M LAB 10:12
PROVIDERS: ATTEND Physician Assistant
DX: I48.0 Paroxysmal atrial fibrillation (principal)

== ENCOUNTER → 2023-08-21 | Outpatient (CLI) | payer OTHER ==
[2023-08-21 10:04] LABS: CALCIUM LEVEL 8.5 MG/DL (8.3-10.6); CREATININE FOR GFR 1.97 MG/DL (0.70-1.30); MAGNESIUM LEVEL 2.1 MG/DL (1.8-2.4); POTASSIUM SERUM 4.8 MMOL/L (3.5-5.1)
== END ==
LOC: M LAB 08:51
PROVIDERS: ATTEND Physician Assistant
DX: I50.42 Chronic combined systolic (congestive) and diastolic (congestive) heart failure (principal)

== ENCOUNTER → 2023-09-13 | Outpatient (CLI) | payer OTHER ==
[2023-09-13 14:01] LABS: INR 2.84; PROTHROMBIN TIME 28.8 SECONDS (12.5-14.5)
== END ==
LOC: M LAB 13:24
PROVIDERS: ATTEND Physician Assistant
DX: I48.0 Paroxysmal atrial fibrillation (principal); Z79.01 Long term (current) use of anticoagulants

== ENCOUNTER → 2023-10-11 | Outpatient (CLI) | payer OTHER | LOC: M RAD 14:38 | PROVIDERS: ATTEND Family Medicine Addiction Medicine | DX: M25.561 Pain in right knee (principal); I48.0 Paroxysmal atrial fibrillation; Z79.01 Long term (current) use of anticoagulants ==

== ENCOUNTER → 2023-10-11 | Outpatient (CLI) | payer OTHER ==
[2023-10-11 15:36] LABS: INR 2.47; PROTHROMBIN TIME 25.9 SECONDS (12.5-14.5)
== END ==
LOC: M LAB 14:40
PROVIDERS: ATTEND Physician Assistant
DX: I48.0 Paroxysmal atrial fibrillation (principal); Z79.01 Long term (current) use of anticoagulants

== ENCOUNTER → 2023-11-13 | Outpatient (CLI) | payer OTHER ==
[2023-11-13 15:46] LABS: INR 2.17; PROTHROMBIN TIME 23.4 SECONDS (12.5-14.5)
[2023-11-13 15:59] LABS: CALCIUM LEVEL 8.9 MG/DL (8.3-10.6); CREATININE FOR GFR 1.89 MG/DL (0.70-1.30); GLOMERULAR FILTRATION RATE 37.7 (>42); POTASSIUM SERUM 4.2 MMOL/L (3.5-5.1)
== END ==
LOC: M LAB 14:58
PROVIDERS: ATTEND Physician Assistant
DX: I50.42 Chronic combined systolic (congestive) and diastolic (congestive) heart failure (principal); I48.0 Paroxysmal atrial fibrillation; Z79.01 Long term (current) use of anticoagulants

== ENCOUNTER → 2023-11-28 | Outpatient (CLI) | payer OTHER ==
[2023-11-28 15:32] LABS: CALCIUM LEVEL 9.1 MG/DL (8.3-10.6); CREATININE FOR GFR 2.02 MG/DL (0.70-1.30); GLOMERULAR FILTRATION RATE 34.9 (>42); MAGNESIUM LEVEL 2.2 MG/DL (1.8-2.4); POTASSIUM SERUM 4.7 MMOL/L (3.5-5.1)
== END ==
LOC: M LAB 14:31
PROVIDERS: ATTEND Physician Assistant
DX: I50.42 Chronic combined systolic (congestive) and diastolic (congestive) heart failure (principal)

== ENCOUNTER → 2024-01-24 | Outpatient (CLI) | payer OTHER ==
[2024-01-24 15:38] LABS: INR 2.67; PROTHROMBIN TIME 27.4 SECONDS (12.5-14.5)
== END ==
LOC: M LAB 14:53
PROVIDERS: ATTEND Physician Assistant
DX: I48.0 Paroxysmal atrial fibrillation (principal); Z79.01 Long term (current) use of anticoagulants

== ENCOUNTER → 2024-02-25 | Outpatient (CLI) | payer OTHER ==
[2024-02-25 15:58] LABS: INR 2.23; PROTHROMBIN TIME 23.9 SECONDS (12.5-14.5)
== END ==
LOC: M LAB 15:03
PROVIDERS: ATTEND Internal Medicine Cardiovascular Disease
DX: I48.0 Paroxysmal atrial fibrillation (principal); Z79.01 Long term (current) use of anticoagulants

== ENCOUNTER → 2024-02-25 | Outpatient (CLI) | payer OTHER ==
[2024-02-25 16:13] LABS: CREATININE, URINE 57.9 MG/DL
[2024-02-25 16:14] LABS: MAU/CREAT RATIO 120.8 MCG/MG (0.0-30.0)
[2024-02-25 16:20] LABS: HEMOGLOBIN A1c 7.4 % (4.0-6.0)
== END ==
LOC: M LAB 15:06
PROVIDERS: ATTEND Nurse Practitioner Family
DX: E11.22 Type 2 diabetes mellitus with diabetic chronic kidney disease (principal); I48.0 Paroxysmal atrial fibrillation; Z79.01 Long term (current) use of anticoagulants

== ENCOUNTER → 2024-04-08 | Outpatient (CLI) | payer OTHER ==
[2024-04-08 15:15] LABS: INR 2.27; PROTHROMBIN TIME 25.1 SECONDS (12.5-14.5)
== END ==
LOC: M LAB 14:39
PROVIDERS: ATTEND Physician Assistant
DX: I48.0 Paroxysmal atrial fibrillation (principal); Z79.01 Long term (current) use of anticoagulants

== ENCOUNTER → 2024-05-30 | Outpatient (CLI) | payer MEDICARE ==
[2024-05-30 15:25] LABS: INR 2.2; PROTHROMBIN TIME 24.6 SECONDS (12.5-14.5)
== END ==
LOC: M LAB 14:37
PROVIDERS: ATTEND Internal Medicine Cardiovascular Disease
DX: I48.0 Paroxysmal atrial fibrillation (principal); Z79.01 Long term (current) use of anticoagulants

== ENCOUNTER → 2024-06-23 | Outpatient (CLI) | payer MEDICARE | LOC: M RAD 09:17 | PROVIDERS: ATTEND Family Medicine Addiction Medicine | DX: M54.50 Low back pain, unspecified (principal); M47.816 Spondylosis without myelopathy or radiculopathy, lumbar region; M47.817 Spondylosis without myelopathy or radiculopathy, lumbosacral region ==

== ENCOUNTER → 2024-06-23 | Outpatient (CLI) | payer MEDICARE ==
[2024-06-23 11:58] LABS: ALBUMIN 3.6 G/DL (3.2-5.2); BILIRUBIN,DIRECT 0.1 MG/DL (<0.4); BILIRUBIN,TOTAL 0.5 MG/DL (0.3-1.2); CHOLESTEROL RISK RATIO 8.02 (<5); HDL CHOLESTEROL 26.3 MG/DL (>40); LDL CHOLESTEROL 111.3 MG/DL (<100); NON-HDL-C 184.7 MG/DL; TOTAL PROTEIN 7.3 G/DL (5.7-8.2)
== END ==
LOC: M LAB 09:19
PROVIDERS: ATTEND Physician Assistant
DX: E78.00 Pure hypercholesterolemia, unspecified (principal); M54.50 Low back pain, unspecified; M47.816 Spondylosis without myelopathy or radiculopathy, lumbar region; M47.817 Spondylosis without myelopathy or radiculopathy, lumbosacral region

== ENCOUNTER → 2024-07-03 | Outpatient (CLI) | payer MEDICARE ==
[2024-07-03 15:46] LABS: INR 1.44; PROTHROMBIN TIME 17.8 SECONDS (12.5-14.5)
== END ==
LOC: M LAB 14:48
PROVIDERS: ATTEND Registered Nurse
DX: Z79.01 Long term (current) use of anticoagulants (principal)

== ENCOUNTER → 2024-08-15 | Outpatient (CLI) | payer MEDICARE ==
[2024-08-15 15:31] LABS: INR 2.33; PROTHROMBIN TIME 25.6 SECONDS (12.5-14.5)
== END ==
LOC: M LAB 14:54
PROVIDERS: ATTEND Physician Assistant
DX: I48.0 Paroxysmal atrial fibrillation (principal); Z79.01 Long term (current) use of anticoagulants

== ENCOUNTER → 2024-09-15 | Outpatient (CLI) | payer MEDICARE ==
[2024-09-15 15:38] LABS: INR 2.51; PROTHROMBIN TIME 27.1 SECONDS (12.5-14.5)
== END ==
LOC: M LAB 14:50
PROVIDERS: ATTEND Physician Assistant
DX: I48.0 Paroxysmal atrial fibrillation (principal)

== ENCOUNTER 2024-10-25 11:29 | Emergency (ER) | payer MEDICARE ==
[~2024-10-25] VITALS: Ht 182.9 cm; Wt 120.3 kg
[2024-10-25 13:27] LABS: BASO # 0.1 10^3/uL (0.0-0.2); BASO % 0.6 % (0.0-1.0); EOS # 0.2 10^3/uL (0.0-0.5); EOS % 1.9 % (0.0-3.0); HEMATOCRIT 33.3 % (42.0-52.0); HEMOGLOBIN 11.5 g/dl (13.5-17.5); LYMPH # 1.6 10^3/uL (1.5-5.0); LYMPH % 18.4 % (24.0-44.0); MEAN CORPUSCULAR HGB CONC 34.5 g/dl (32.0-36.5); MEAN CORPUSCULAR VOLUME 89.8 fl (80.0-96.0); MONO # 0.8 10^3/uL (0.0-0.8); MONO % 9.2 % (2.0-8.0); NEUTROPHILS # 5.9 10^3/uL (1.5-8.5); NEUTROPHILS % 69.2 % (36.0-66.0); PLATELET COUNT, AUTOMATED 240 10^3/uL (150-450); RED BLOOD COUNT 3.71 10^6/uL (4.30-6.10); WHITE BLOOD COUNT 8.5 10^3/uL (4.0-10.0)
[2024-10-25 13:32] LABS: ERYTHROCYTE SEDIMENTATION RATE 43 mm/hr (0-20)
[2024-10-25 13:50] LABS: C REACTIVE PROTEIN QUANTITATIV 0.86 MG/DL (<1.0)
[2024-10-25 14:01] LABS: PROCALCITONIN 0.36 ng/ml
[2024-10-25 14:07] LABS: ALBUMIN 3.3 G/DL (3.2-5.2); ALKALINE PHOSPHATASE 64 U/L (40-129); ALT/SGPT 53 U/L (7.0-40); BILIRUBIN,DIRECT < 0.1 MG/DL (<0.4); BILIRUBIN,TOTAL 0.3 MG/DL (0.3-1.2); BLOOD UREA NITROGEN 56 MG/DL (9-23); CALCIUM LEVEL 8.6 MG/DL (8.3-10.6); CARBON DIOXIDE LEVEL 26 MMOL/L (20-31); CHLORIDE LEVEL 100 MMOL/L (98-107); CREATININE FOR GFR 2.01 MG/DL (0.70-1.30); GLOMERULAR FILTRATION RATE 34.8 (>42); GLUCOSE, FASTING 390 MG/DL (74-106); POTASSIUM SERUM 4.5 MMOL/L (3.5-5.1); SODIUM LEVEL 135 MMOL/L (136-145); TOTAL PROTEIN 6.9 G/DL (5.7-8.2)
[2024-10-25 14:21] LABS: AST/SGOT 47 U/L (<34)
[2024-10-25] MEDS: CEFEPIME HCL 1 GM in DEXTROSE 5% (D5W) ADV/MINI-BAG 50 ML IV ONE (14:48)
[2024-10-25 14:56] LABS: DIGOXIN LEVEL 0.7 NG/ML (0.8-2.0)
[2024-10-25] MEDS ORDERED: CIPR-249 PO (15:02)
[2024-10-25 15:07] LABS: INR 3.63; PROTHROMBIN TIME 35.9 SECONDS (12.5-14.5)
[2024-10-25] MEDS ORDERED: LEVO1TAB40 PO ×2 (15:11→15:57)
[2024-10-25] MEDS: NS (Normal Saline) 0.9% 1,000 ML IV ONE (15:40)
[2024-10-25] MEDS: DALBAVANCIN 1,500 MG in D5W 250 ML IV ONE (16:15)
[2024-10-25] MEDS ORDERED: BACI1CAP PO (16:26)
[2024-10-25] MEDS ORDERED: CLIN150C17 PO (16:26)
[2024-10-25] MEDS ORDERED: SILV1CRE60 TOP (17:11)
[2024-10-25] MEDS: CLINDAMYCIN 900 MG in IV 1 EA IV ONE (17:37)
[2024-10-25] MEDS: LACTOBACILLUS ACIDOPHILUS CAP PO SCH ×2 (17:42)
[2024-10-25 18:30] VITALS: BP 155/84; TEMP 97.8; O2SAT 95
== END 2024-10-25 18:44 | disposition left against medical advice (07) ==
LOC: M ED 11:29 → M ED INP 14:49 → UNDOADMIN 14:49 → M ED 18:44
DX: E11.621 Type 2 diabetes mellitus with foot ulcer (principal); L97.529 Non-pressure chronic ulcer of other part of left foot with unspecified severity; L03.116 Cellulitis of left lower limb; Z53.20 Procedure and treatment not carried out because of patient's decision for unspecified reasons; I13.0 Hypertensive heart and chronic kidney disease with heart failure and stage 1 through stage 4 chronic kidney disease, or unspecified chronic kidney disease; I50.9 Heart failure, unspecified; E78.5 Hyperlipidemia, unspecified; N18.30 Chronic kidney disease, stage 3 unspecified; N40.0 Benign prostatic hyperplasia without lower urinary tract symptoms; M54.50 Low back pain, unspecified; F32.A Depression, unspecified; I25.2 Old myocardial infarction; Z88.0 Allergy status to penicillin; Z88.8 Allergy status to other drugs, medicaments and biological substances; Z88.1 Allergy status to other antibiotic agents; Z90.49 Acquired absence of other specified parts of digestive tract
CPT/HCPCS: 36415; 73630; 80048; 80076; 80162; 83605; 84145; 85025; 85610; 85652; 86140; 87040; 87070; 87077; 87186; 87205; 93005; 93041; 94760; 96361; 96365; 96367; 99285; J0692; J0737; J0875

== ENCOUNTER → 2024-12-11 | Outpatient (CLI) | payer MEDICARE ==
[~2024-12-11] MED LIST changes: +BACI1CAP PO; +CIPR-249 PO; +CLIN150C17 PO; +LEVO1TAB40 PO; +SILV1CRE60 TOP
[2024-12-11 15:55] LABS: INR 3.19
== END ==
LOC: M LAB 14:43
PROVIDERS: ATTEND Physician Assistant
DX: I48.0 Paroxysmal atrial fibrillation (principal); Z79.01 Long term (current) use of anticoagulants

== ENCOUNTER → 2024-12-29 | Outpatient (CLI) | payer MEDICARE ==
[2024-12-29 15:23] LABS: INR 1.91
== END ==
LOC: M LAB 14:29
PROVIDERS: ATTEND Physician Assistant
DX: I48.0 Paroxysmal atrial fibrillation (principal); Z79.01 Long term (current) use of anticoagulants

== ENCOUNTER → 2025-01-27 | Outpatient (CLI) | payer MEDICARE ==
[2025-01-27 16:30] LABS: INR 1.77
== END ==
LOC: M LAB 15:25
PROVIDERS: ATTEND Physician Assistant
DX: I48.0 Paroxysmal atrial fibrillation (principal); Z79.01 Long term (current) use of anticoagulants

== ENCOUNTER → 2025-02-11 | Outpatient (REF) | payer MEDICARE | LOC: M LAB REF 10:34 | PROVIDERS: ATTEND Podiatrist Foot & Ankle Surgery | DX: M85.671 Other cyst of bone, right ankle and foot (principal) ==

== ENCOUNTER 2025-02-23 11:38 | Inpatient (IN) | payer MEDICARE ==
[~2025-02-23] VITALS: Ht 182.9 cm; Wt 115.5 kg
[2025-02-23 12:56] LABS: ERYTHROCYTE SEDIMENTATION RATE 96 mm/hr (0-20)
[2025-02-23 13:10] LABS: INR 2.02
[2025-02-23 13:25] LABS: C REACTIVE PROTEIN QUANTITATIV 7.79 MG/DL (<1.0)
[2025-02-23 13:26] LABS: ALT/SGPT 25.0 U/L (7.0-40); AST/SGOT 22.0 U/L (<34); CALCIUM LEVEL 8.3 MG/DL (8.3-10.6); CARBON DIOXIDE LEVEL 24.0 MMOL/L (20-31); CHLORIDE LEVEL 99.0 MMOL/L (98-107); CREATININE FOR GFR 2.24 MG/DL (0.70-1.30); GLOMERULAR FILTRATION RATE 30.6 (>42); POTASSIUM SERUM 4.8 MMOL/L (3.5-5.1); SODIUM LEVEL 135.0 MMOL/L (136-145)
[2025-02-23 13:41] LABS: BASO # 0.1 10^3/uL (0.0-0.2); BASO % 0.4 % (0.0-1.0); EOS # 0.1 10^3/uL (0.0-0.5); EOS % 1.0 % (0.0-3.0); LYMPH # 1.1 10^3/uL (1.5-5.0); LYMPH % 8.1 % (24.0-44.0); MONO # 1.2 10^3/uL (0.0-0.8); MONO % 8.4 % (2.0-8.0); NEUTROPHILS # 11.2 10^3/uL (1.5-8.5); NEUTROPHILS % 81.4 % (36.0-66.0); PLATELET COUNT, AUTOMATED 394 10^3/uL (150-450)
[2025-02-23] MEDS ORDERED: WARF-18 PO (15:35)
[2025-02-23] MEDS ORDERED: HYDR-3716 PO (15:35)
[2025-02-23] MEDS ORDERED: INSUH10VL SQ (15:35)
[2025-02-23] MEDS ORDERED: ROSU40TA81 PO (15:36)
[2025-02-23] MEDS ORDERED: TORS20TA2 PO (15:36)
[2025-02-23] MEDS ORDERED: HOME MED LIST COMPLETE! XX SCH (15:40)
[2025-02-23] MEDS ORDERED: VANCOMYCIN HCL 1,000 MG in IV FLUID PLACE HOLDER 1 EA IV ONE (15:45)
[2025-02-23] MEDS: cefTRIAXone SOD 1 GM in DEXTROSE 5% (D5W) ADV/MINI-BAG 50 ML IV ONE (15:51)
[2025-02-23] MEDS: NS (Normal Saline) 0.9% 1,000 ML IV ONE (15:51)
[2025-02-23] MEDS ORDERED: VANCOMYCIN HCL 1,750 MG, VIAL MATE ADAPTER 1 EACH in NS 500 ML IV SCH (16:00)
[2025-02-23] MEDS ORDERED: GLUCOSE 4 GM CHEW PO PRN ×2 (16:10→19:30)
[2025-02-23] MEDS ORDERED: DEXTROSE 50% 50 ML SYRINGE IV PRN ×2 (16:10→19:30)
[2025-02-23] MEDS ORDERED: GLUCAGON INJ 1 MG VIAL SC PRN ×2 (16:10→19:30)
[2025-02-23] MEDS ORDERED: **hydrALAZINE** 10 MG TAB PO PRN (16:30)
[2025-02-23] MEDS: HumuLIN R (REGULAR) INSULIN (NovoLIN R) **100 U/ML** PER UNIT IV STA (16:37)
[2025-02-23] MEDS: VANCOMYCIN HCL 1,750 MG, VIAL MATE ADAPTER 1 EACH in NS 500 ML IV ONE (16:37)
[2025-02-23 17:10] VITALS: BP 152/86; TEMP 97.7; O2SAT 97
[2025-02-23] MEDS: INSULIN LISPRO (NovoLOG) PER UNIT SC SCH ×3 (17:30→21:00)
[2025-02-23] MEDS ORDERED: dexAMETHasone 4 MG/ML 1 ML VIAL As Ordered ONE (18:34)
[2025-02-23] MEDS ORDERED: LIDOCAINE 2% 100 MG/5 ML SDV (FOR ANES.) As Ordered ONE (18:40)
[2025-02-23] MEDS ORDERED: ONDANSETRON 4MG 2ML VIAL As Ordered ONE (18:41)
[2025-02-23] MEDS: INSULIN LISPRO (NovoLOG) PER UNIT As Ordered ONE (19:07)
[2025-02-23] MEDS: LIDOCAINE 2% MDV 20 ML VIAL As Ordered ONE (19:23)
[2025-02-23] MEDS ORDERED: HYDROMORPHONE HCL 0.5 MG/0.5 ML SYRINGE IV PRN (19:30)
[2025-02-23] MEDS: LR 1,000 ML IV SCH (19:30)
[2025-02-23] MEDS ORDERED: INSULIN LISPRO (NovoLOG) PER UNIT SC PRN (19:30)
[2025-02-23] MEDS: GENTAMICIN SULF 80 MG/2 ML VIAL As Ordered ONE (19:37)
[2025-02-23 20:36] VITALS: BP 141/72; TEMP 98.2; O2SAT 97
[2025-02-23 21:06] VITALS: BP 116/76; TEMP 97.7; O2SAT 97
[2025-02-23 21:36] VITALS: BP 123/76; TEMP 97.9; O2SAT 96
[2025-02-23 22:54] VITALS: BP 144/70; TEMP 98.1; O2SAT 98
[2025-02-23 23:36] VITALS: BP 134/67; TEMP 98.6; O2SAT 96
[2025-02-24] MEDS: LR 1,000 ML IV SCH (00:09)
[2025-02-24] MEDS: LanTUS (INSULIN GLARGINE INJ) 1 UNITS/0.01 ML SC SCH ×3 (00:09→20:59)
[2025-02-24 00:36] VITALS: BP 151/67; TEMP 98.8; O2SAT 95
[2025-02-24 04:49] VITALS: TEMP 100.5
[2025-02-24 04:50] VITALS: BP 134/62; TEMP 101.1; O2SAT 94
[2025-02-24] MEDS: cefTRIAXone SOD 2 GM in DEXTROSE 5% (D5W) ADV/MINI-BAG 50 ML IV SCH (06:19)
[2025-02-24 06:47] LABS: PLATELET COUNT, AUTOMATED 349 10^3/uL (150-450)
[2025-02-24 07:00] LABS: INR 2.11
[2025-02-24 07:18] LABS: DIGOXIN LEVEL 0.7 NG/ML (0.8-2.0)
[2025-02-24 07:35] LABS: CALCIUM LEVEL 8.3 MG/DL (8.3-10.6); CARBON DIOXIDE LEVEL 24.0 MMOL/L (20-31); CHLORIDE LEVEL 104.0 MMOL/L (98-107); CHOLESTEROL LEVEL 69.0 MG/DL (<200); CHOLESTEROL RISK RATIO 4.5 (<5); CREATININE FOR GFR 1.93 MG/DL (0.70-1.30); GLOMERULAR FILTRATION RATE 36.6 (>42); LDL CHOLESTEROL 19.7 MG/DL (<100); MAGNESIUM LEVEL 2.0 MG/DL (1.8-2.4); NON-HDL-C 53.7 MG/DL; POTASSIUM SERUM 4.7 MMOL/L (3.5-5.1); SODIUM LEVEL 138.0 MMOL/L (136-145); TRIGLYCERIDES LEVEL 170.0 MG/DL (<150)
[2025-02-24] MEDS: VANCOMYCIN HCL 1,250 MG, VIAL MATE ADAPTER 1 EACH in NS 250 ML IV SCH (08:21)
[2025-02-24] MEDS: ROSUVASTATIN 10 MG TAB PO SCH (08:23)
[2025-02-24] MEDS: amLODIPine 5 MG TAB PO SCH (08:24)
[2025-02-24 08:37] LABS: ESTIMATED AVERAGE GLUCOSE 246.0 MG/DL (60-110)
[2025-02-24 08:41] LABS: VANCOMYCIN RANDOM 13.1 UG/ML
[2025-02-24] MEDS ORDERED: MAGNESIUM GLUCONATE 500 MG TAB PO SCH (09:00)
[2025-02-24] MEDS: NS (Normal Saline) 0.9% 1,000 ML IV SCH (09:55)
[2025-02-24] MEDS: DIGOXIN 0.125 MG TAB PO SCH (09:57)
[2025-02-24] MEDS: MAGNESIUM OXIDE 400 MG TAB PO SCH (09:57)
[2025-02-24] MEDS: CEFEPIME HCL 2 GM in DEXTROSE 5% (D5W) ADV/MINI-BAG 50 ML IV SCH (10:52)
[2025-02-24] MEDS: INSULIN LISPRO (NovoLOG) PER UNIT SC SCH ×2 (13:28→18:02)
[2025-02-24 19:52] VITALS: BP 170/68; TEMP 98.1; O2SAT 96
[2025-02-24] MEDS: CLOPIDOGREL 75 MG TAB PO SCH (20:59)
[2025-02-25] VITALS (7 sets, daily range): BP systolic 145–178; BP diastolic 56–79; TEMP 98.1–99.4; O2SAT 90–97
[2025-02-25 00:11] LABS: PLATELET COUNT, AUTOMATED 320 10^3/uL (150-450)
[2025-02-25 00:13] LABS: FREE T4 1.05 NG/DL (0.89-1.76)
[2025-02-25 00:18] LABS: ALT/SGPT 29 U/L (7.0-40); AST/SGOT 30 U/L (<34); CALCIUM LEVEL 7.9 MG/DL (8.3-10.6); CARBON DIOXIDE LEVEL 23 MMOL/L (20-31); CHLORIDE LEVEL 110 MMOL/L (98-107); CREATININE FOR GFR 1.86 MG/DL (0.70-1.30); GLOMERULAR FILTRATION RATE 38.2 (>42); MAGNESIUM LEVEL 2.0 MG/DL (1.8-2.4); POTASSIUM SERUM 4.5 MMOL/L (3.5-5.1); SODIUM LEVEL 142 MMOL/L (136-145)
[2025-02-25 07:45] LABS: PLATELET COUNT, AUTOMATED 330 10^3/uL (150-450)
[2025-02-25 08:03] LABS: INR 1.89
[2025-02-25 08:14] LABS: ALT/SGPT 27.0 U/L (7.0-40); AST/SGOT 27.0 U/L (<34); CALCIUM LEVEL 8.1 MG/DL (8.3-10.6); CARBON DIOXIDE LEVEL 24.0 MMOL/L (20-31); CHLORIDE LEVEL 108.0 MMOL/L (98-107); CREATININE FOR GFR 1.75 MG/DL (0.70-1.30); GLOMERULAR FILTRATION RATE 41.1 (>42); POTASSIUM SERUM 4.5 MMOL/L (3.5-5.1); SODIUM LEVEL 142.0 MMOL/L (136-145)
[2025-02-25] MEDS: LanTUS (INSULIN GLARGINE INJ) 1 UNITS/0.01 ML SC ONE (08:53)
[2025-02-25] MEDS: WARFARIN SOD 5MG TAB PO SCH (17:26)
[2025-02-26 03:39] VITALS: BP 134/62; TEMP 99.1; O2SAT 94
[2025-02-26 07:35] LABS: PLATELET COUNT, AUTOMATED 338 10^3/uL (150-450)
[2025-02-26 07:46] LABS: INR 1.54
[2025-02-26 07:51] LABS: ALT/SGPT 39.0 U/L (7.0-40); AST/SGOT 33.0 U/L (<34); CALCIUM LEVEL 8.0 MG/DL (8.3-10.6); CARBON DIOXIDE LEVEL 22.0 MMOL/L (20-31); CHLORIDE LEVEL 109.0 MMOL/L (98-107); CREATININE FOR GFR 1.54 MG/DL (0.70-1.30); GLOMERULAR FILTRATION RATE 47.9 (>42); POTASSIUM SERUM 4.6 MMOL/L (3.5-5.1); SODIUM LEVEL 141.0 MMOL/L (136-145)
[2025-02-26 11:33] VITALS: BP 148/74; TEMP 98.4; O2SAT 96
[2025-02-26] MEDS ORDERED: WARFARIN SOD 2.5MG TAB PO SCH (17:00)
[2025-02-26] MEDS: WARFARIN SOD 7.5MG TAB PO ONE (17:28)
[2025-02-26] MEDS: ceFAZolin SODIUM 2 GM in DEXTROSE 5% (D5W) ADV/MINI-BAG 50 ML IV SCH (18:01)
[2025-02-26 19:54] VITALS: BP 169/76; TEMP 98.6; O2SAT 98
[2025-02-27 04:37] VITALS: BP 167/76; TEMP 98.7; O2SAT 95
[2025-02-27 06:46] LABS: PLATELET COUNT, AUTOMATED 343 10^3/uL (150-450)
[2025-02-27 06:59] LABS: INR 1.62
[2025-02-27 07:11] LABS: ALT/SGPT 39.0 U/L (7.0-40); AST/SGOT 34.0 U/L (<34); CALCIUM LEVEL 7.8 MG/DL (8.3-10.6); CARBON DIOXIDE LEVEL 23.0 MMOL/L (20-31); CHLORIDE LEVEL 108.0 MMOL/L (98-107); CREATININE FOR GFR 1.52 MG/DL (0.70-1.30); GLOMERULAR FILTRATION RATE 48.7 (>42); POTASSIUM SERUM 4.5 MMOL/L (3.5-5.1); SODIUM LEVEL 141.0 MMOL/L (136-145)
[2025-02-27 09:20] VITALS: BP 166/77
[2025-02-27 11:43] VITALS: BP 164/77; TEMP 98.6; O2SAT 97
[2025-02-27] MEDS ORDERED: KETOROLAC 30 MG/ML 1 ML VIAL As Ordered ONE (14:01)
[2025-02-27] MEDS ORDERED: MIDAZOLAM INJ 2 MG/2 ML VIAL As Ordered ONE (14:05)
[2025-02-27] MEDS ORDERED: ACETAMINOPHEN 1000MG/100ML IV BAG As Ordered ONE (15:31)
[2025-02-27] MEDS ORDERED: ONDANSETRON 4MG 2ML VIAL IV PRN (15:55)
[2025-02-27] MEDS ORDERED: HYDROMORPHONE HCL 0.5 MG/0.5 ML SYRINGE IV PRN (15:55)
[2025-02-27 16:26] VITALS: BP 155/68; TEMP 98.1; O2SAT 97
[2025-02-27] MEDS ORDERED: OXYC-517 PO (16:30)
[2025-02-27] MEDS ORDERED: MAGN400T33 PO (16:30)
[2025-02-27] MEDS ORDERED: CEPH500C PO (17:20)
== END 2025-02-27 18:19 | disposition home or self-care (01) | DRG 580 ==
LOC: M ED 11:38 → M ED INP 15:46 → M MSPAV 17:10
PROVIDERS: ADMIT Student in an Organized Health Care Education/Training Program; ATTEND Internal Medicine
PROC: 0Y9M0ZZ Drainage of Right Foot, Open Approach (ICD-10-PCS; 2025-02-23)
PROC: B246ZZZ Ultrasonography of Right and Left Heart (ICD-10-PCS; 2025-02-24)
PROC: 0KBV0ZZ Excision of Right Foot Muscle, Open Approach (ICD-10-PCS; 2025-02-27)
PROC: 0Y6T0Z1 Detachment at Right 3rd Toe, High, Open Approach (ICD-10-PCS; principal; 2025-02-27 13:30)
DX: L02.611 Cutaneous abscess of right foot (principal); I13.0 Hypertensive heart and chronic kidney disease with heart failure and stage 1 through stage 4 chronic kidney disease, or unspecified chronic kidney disease; N17.9 Acute kidney failure, unspecified; E11.22 Type 2 diabetes mellitus with diabetic chronic kidney disease; I25.10 Atherosclerotic heart disease of native coronary artery without angina pectoris; I25.2 Old myocardial infarction; I50.9 Heart failure, unspecified; N18.30 Chronic kidney disease, stage 3 unspecified; I48.91 Unspecified atrial fibrillation; M14.672 Charcot's joint, left ankle and foot; L97.519 Non-pressure chronic ulcer of other part of right foot with unspecified severity; Z98.49 Cataract extraction status, unspecified eye; Z90.49 Acquired absence of other specified parts of digestive tract; Z95.5 Presence of coronary angioplasty implant and graft; Z79.01 Long term (current) use of anticoagulants; Z79.4 Long term (current) use of insulin; Z79.899 Other long term (current) drug therapy; Z88.0 Allergy status to penicillin; Z88.6 Allergy status to analgesic agent; Z88.8 Allergy status to other drugs, medicaments and biological substances; Z91.048 Other nonmedicinal substance allergy status

== ENCOUNTER → 2025-03-05 | Outpatient (CLI) | payer MEDICARE ==
[~2025-03-05] MED LIST changes: +HYDR-3716 PO; +INSUH10VL SQ; +MAGN400T33 PO; +OXYC-517 PO; +ROSU40TA81 PO
[2025-03-05 10:16] LABS: INR 1.48
== END ==
LOC: M LAB 08:47
PROVIDERS: ATTEND Physician Assistant
DX: I48.0 Paroxysmal atrial fibrillation (principal); Z79.01 Long term (current) use of anticoagulants

== ENCOUNTER → 2025-04-08 | Outpatient (CLI) | payer MEDICARE ==
[~2025-04-08] MED LIST changes: -INSU100V19 SQ; +INSURSDRX SQ
[2025-04-08 16:01] LABS: INR 2.93
== END ==
LOC: M LAB 14:36
PROVIDERS: ATTEND Family Medicine Addiction Medicine
DX: I48.0 Paroxysmal atrial fibrillation (principal); Z79.01 Long term (current) use of anticoagulants